=== PATIENT | male | born 1995 | race African-American/Black ===

== ENCOUNTER 2017-03-04 00:33 | Emergency (ER) | payer OTHER ==
[2017-03-04 00:45] VITALS: BP 133/87
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
[2017-03-04] MEDS ORDERED: HYDROcod/ACETAM 5/325 MG TABLET PO STA (01:18)
[2017-03-04] MEDS ORDERED: CYCLOBENZAPRINE 10 MG TABLET PO STA (01:18)
[2017-03-04] MEDS ORDERED: CYCLOBENZAPRINE 10 MG TABLET PO ONE (01:31)
[2017-03-04] MEDS ORDERED: HYDROcod/ACETAM 5/325 MG TABLET ONE (01:32)
== END 2017-03-04 01:35 | disposition home or self-care (01) ==
LOC: ED 00:33
DX: S16.1XXA Strain of muscle, fascia and tendon at neck level, initial encounter (principal); V89.2XXA Person injured in unspecified motor-vehicle accident, traffic, initial encounter
CPT/HCPCS: 99283; A9270